=== PATIENT | female | born 1940 | race Caucasian/White ===

== ENCOUNTER 2021-07-29 16:05 | Inpatient (IN) | payer OTHER ==
[~2021-07-29] VITALS: Ht 160 cm; Wt 88.1 kg
[~2021-07-29 16:05] MED LIST: ALPRAZOLAM0.5 MG PO; ASPIR 8181 MG PO; BRILINTA 90 MG90 MG PO; BUMEX 1MG TABLET1 MG PO; CLOPIDOGREL75 MG PO; ELIQUIS5 MG PO; K-DUR TAB 20 M20 MEQ PO; KLOR-CON M2020 MEQ PO; LASIX40 MG PO; LIPITOR80 MG PO; NITROGLYCERIN0.4 MG SL; OMEPRAZOLE20 M1 PO; PROTONIX20 MG PO; SYNTHROID50 MCG PO; ZEBETA 5 MG TAB5 MG PO
[2021-07-29 21:50] LABS: HEMOGLOBIN 12.3 gm/dl (12.3-15.3); RED BLOOD COUNT 4.32 M/UL (4.00-5.10); WHITE BLOOD COUNT 8.9 K/UL (4.5-11.0)
[2021-07-29 22:16] LABS: BUN/CREATININE RATIO 29 (0-10)
[2021-07-30] MEDS ORDERED: K-DUR TAB 10 M10 MEQ PO (01:27)
[2021-07-30] MEDS ORDERED: BUMETANIDE2 MG PO (01:27)
[2021-07-30] MEDS ORDERED: HYDROCODON-ACE1 EAC4 PO (01:28)
[2021-07-30 07:30] LABS: HEMOGLOBIN 10.9 gm/dl (12.3-15.3); RED BLOOD COUNT 3.9 M/UL (4.00-5.10)
[2021-07-30 07:43] LABS: WHITE BLOOD COUNT 5.8 K/UL (4.5-11.0)
[2021-07-31 04:16] LABS: BUN/CREATININE RATIO 34 (0-10)
[2021-07-31 04:55] LABS: HEMOGLOBIN 10.9 gm/dl (12.3-15.3); RED BLOOD COUNT 3.86 M/UL (4.00-5.10); WHITE BLOOD COUNT 5.6 K/UL (4.5-11.0)
[2021-08-01 03:57] LABS: RED BLOOD COUNT 3.64 M/UL (4.00-5.10); WHITE BLOOD COUNT 4.9 K/UL (4.5-11.0)
[2021-08-02 03:52] LABS: HEMOGLOBIN 10.8 gm/dl (12.3-15.3); RED BLOOD COUNT 3.86 M/UL (4.00-5.10)
[2021-08-02 03:54] LABS: WHITE BLOOD COUNT 6.7 K/UL (4.5-11.0)
--- NOTE | 2021-08-02 14:20 | NUR ---
COVID SWAB SPECIMEN OBTAINED AND SENT TO LAB. CONSENTS SIGNED AND ON THE CHART. HOUSE CALLED TO SCHEDULE PROCEDURE FOR AM, ORDER FAXED.
[2021-08-03 09:53] LABS: HEMOGLOBIN 10.5 gm/dl (12.3-15.3); RED BLOOD COUNT 3.77 M/UL (4.00-5.10)
[2021-08-03 09:54] LABS: WHITE BLOOD COUNT 4.9 K/UL (4.5-11.0)
[2021-08-04 03:55] LABS: HEMOGLOBIN 10.3 gm/dl (12.3-15.3); RED BLOOD COUNT 3.64 M/UL (4.00-5.10); WHITE BLOOD COUNT 6.1 K/UL (4.5-11.0)
[2021-08-04] MEDS ORDERED: MEGACE 400400 MG/10 PO (13:22)
[2021-08-04] MEDS ORDERED: STIMULANT LAXA1 EACH PO (13:22)
== END 2021-08-04 18:08 | disposition home or self-care (01) | DRG 823 ==
LOC: ER1 16:05 → CDU 22:52 → PROG CARE 07-30 17:19
PROVIDERS: Emergency Medicine; Internal Medicine; Physician Assistant; Surgery; ADMIT Internal Medicine
PROC: 07B10ZX Excision of Right Neck Lymphatic, Open Approach, Diagnostic (ICD-10-PCS; principal; 2021-08-03 13:30)
DX: C77.0 Secondary and unspecified malignant neoplasm of lymph nodes of head, face and neck (principal); G92 Toxic encephalopathy; Z20.822 Contact with and (suspected) exposure to COVID-19; C78.7 Secondary malignant neoplasm of liver and intrahepatic bile duct; R44.3 Hallucinations, unspecified; C34.90 Malignant neoplasm of unspecified part of unspecified bronchus or lung; I48.20 Chronic atrial fibrillation, unspecified; J90 Pleural effusion, not elsewhere classified; J91.0 Malignant pleural effusion; J96.11 Chronic respiratory failure with hypoxia; E87.2 Acidosis; E22.2 Syndrome of inappropriate secretion of antidiuretic hormone; J44.9 Chronic obstructive pulmonary disease, unspecified; K21.9 Gastro-esophageal reflux disease without esophagitis; F41.9 Anxiety disorder, unspecified; I27.20 Pulmonary hypertension, unspecified; F03.90 Unspecified dementia, unspecified severity, without behavioral disturbance, psychotic disturbance, mood disturbance, and anxiety; T39.95XA Adverse effect of unspecified nonopioid analgesic, antipyretic and antirheumatic, initial encounter; E87.6 Hypokalemia; I25.10 Atherosclerotic heart disease of native coronary artery without angina pectoris; R63.4 Abnormal weight loss; E86.0 Dehydration; G47.33 Obstructive sleep apnea (adult) (pediatric); E03.9 Hypothyroidism, unspecified; K59.00 Constipation, unspecified; Z95.1 Presence of aortocoronary bypass graft; Z79.01 Long term (current) use of anticoagulants; Z79.82 Long term (current) use of aspirin; Z99.81 Dependence on supplemental oxygen; Z90.49 Acquired absence of other specified parts of digestive tract; Z90.710 Acquired absence of both cervix and uterus; Z88.2 Allergy status to sulfonamides; Z87.891 Personal history of nicotine dependence; Z80.0 Family history of malignant neoplasm of digestive organs
CPT/HCPCS: 36415; 36600; 51701; 70551; 71045; 71250; 80048; 80053; 80202; 81001; 82140; 82550; 82553; 82803; 83605; 83735; 83874; 83880; 84439; 84443; 84484; 85025; 87040; 93005; 94760; 96365; 96366; 96375; 96376; 99285; G0378; J0692; J0696; J1100; J2001; J2405; J2704; J3370; J7030; J7040; J7070; J7120; U0002